=== PATIENT | female | born 1975 | race Caucasian/White ===

== ENCOUNTER 2017-07-16 14:56 | Emergency (ER) | payer BC ==
[~2017-07-16] VITALS: Ht 157.5 cm; Wt 54.9 kg
[2017-07-16 15:00] VITALS: TEMP 36.9; Ht 157.5 cm; Wt 54.9 kg
[2017-07-16] MEDS ORDERED: TRIMETHOPRIM/POLYMYXIN B OP ONE (15:30)
[2017-07-16] MEDS ORDERED: AMOXICILLIN/CLAVULANATE TAB 875 MG TAB PO ONE ×2 (15:30→16:30)
[2017-07-16] MEDS ORDERED: MULTIVITAMIN PACK PO (15:45)
--- NOTE | 2017-07-16 15:57 | DIAGNOSTIC IMAGING REPORT ---
ORBIT CT HISTORY: right orbit trauma, suspect orbital floor fx TECHNIQUE: Multiaxial CT images of the orbits were performed and reformatted in the coronal plane without the use of intravenous contrast. COMPARISON STUDY: None. FINDINGS: Trace hemorrhage within the right maxillary sinus. There is intraorbital subcutaneous gas. There is also preseptal and extraconal gas within the right orbit. The globes and retrobulbar fat appear intact. The optic nerves are normal in course and caliber. Mild right periorbital soft tissue swelling. The visualized brain parenchyma is unremarkable. There is a displaced right orbital floor fracture. The defect measures 1.5 cm. There is displacement of the extraconal fat and a small portion of the inferior rectus muscle into the defect. Therefore, this is concerning for entrapment. The orbital floor fractures depressed up to 1 cm. IMPRESSION: Comminuted and depressed right orbital floor fracture described above. There is also displacement of the extraconal fat and a small portion of the inferior rectus muscle into the orbital floor defect. Therefore, this is concerning for entrapment. Electronically signed by: Donovan Kirkland M.D. 07/16/2017 3:56 PM Dictated Date/Time: 07/16/2017 3:52 PM
[2017-07-16] MEDS ORDERED: AMOX875T PO (16:27)
[2017-07-16 16:28] VITALS: BP 138/88; PULSE 80; O2SAT 99
--- NOTE | 2017-07-16 17:59 | EMERGENCY ROOM VISIT NOTE ---
History Report prepared by Al: Marixa Leblanc Under the Supervision of: Dr. Mathew Bear M.D. First contact with patient: 15:05 Chief Complaint: EYE ASSESSMENT Stated Complaint: EYE PAIN History of Present Illness The patient is a 42 year old female who presents to the Emergency Room with complaints of sudden right eye pain beginning 2 days ago. The patient states that her dog went to jump into bed when the patient was leaning over, and the dog scratched her eye. The patient states that her eyeball hurts but that the area around her eye does not hurt. She also states that her eye popped up a little when she blew her nose. She reports having a headache yesterday, but denies neck and jaw pain. Dr. Lozoya spoke to Dr. Pulido who wanted the patient to get a CT scan done. Pt denies LOC, headache, visual changes, neck pain, chest pain, breathing difficulties, nausea, vomiting, open wounds, active bleeding, or other complaints. Source of History: patient Onset: 2 days ago Position: eye (right) Timing: other (sudden) Associated Symptoms: + headache, No neck pain Review of Systems See HPI for pertinent positives and negatives. A total of six systems were reviewed and were otherwise negative. Past Medical & Surgical Medical Problems: (1) Pancreatitis Family History Cancer Heart disease Social History Smoking Status: Current Every Day Smoker Alcohol Use: occasionally, other Drug Use: none Marital Status: in relationship Housing Status: lives with family, lives with significant other Occupation Status: employed Current/Historical Medications Scheduled Amoxicillin & Pot Clavulanate (Augmentin 875-125 mg), 875 MG PO BID [Multivitamin Pack], 1 PKT PO DAILY Allergies Coded Allergies: No Known Allergies (Unverified , 11/04/14) Physical Exam Vital Signs Date Time Temp Pulse Resp B/P (MAP) Pulse Ox O2 Delivery O2 Flow Rate FiO2 07/16/17 16:28 80 138/88 99 Room Air 07/16/17 15:00 36.9 90 18 140/84 99 Room Air Physical Exam GENERAL: Awake, alert, well-appearing, in no distress HENT: Normocephalic, atraumatic. Oropharynx unremarkable. EYES: Swelling and bruising below right eye. Scleral injection present medially. NECK: Supple. No nuchal rigidity. FROM. No JVD. RESPIRATORY: Clear to auscultation. MUSCULOSKELETAL: Chest examination reveals no tenderness. The back is symmetrical on inspection without obvious abnormality. There is no CVA tenderness to palpation. No joint edema. NEURO: Normal sensorium. No sensory or motor deficits noted. SKIN: No rash or jaundice noted. Medical Decision & Procedures ER Provider Diagnostic Interpretation: Radiology results as stated below per my review and radiologist interpretation: ORBIT CT HISTORY: right orbit trauma, suspect orbital floor fx TECHNIQUE: Multiaxial CT images of the orbits were performed and reformatted in the coronal plane without the use of intravenous contrast. COMPARISON STUDY: None. FINDINGS: Trace hemorrhage within the right maxillary sinus. There is intraorbital subcutaneous gas. There is also preseptal and extraconal gas within the right orbit. The globes and retrobulbar fat appear intact. The optic nerves are normal in course and caliber. Mild right periorbital soft tissue swelling. The visualized brain parenchyma is unremarkable. There is a displaced right orbital floor fracture. The defect measures 1.5 cm. There is displacement of the extraconal fat and a small portion of the inferior rectus muscle into the defect. Therefore, this is concerning for entrapment. The orbital floor fractures depressed up to 1 cm. IMPRESSION: Comminuted and depressed right orbital floor fracture described above. There is also displacement of the extraconal fat and a small portion of the inferior rectus muscle into the orbital floor defect. Therefore, this is concerning for entrapment. Electronically signed by: Donovan Kirkland M.D. 07/16/2017 3:56 PM Dictated Date/Time: 07/16/2017 3:52 PM Medications Administered Medications (Trade) Dose Ordered Sig/Traci Route Start Time Stop Time Status Last Admin Dose Admin Polymyxin/ Trimethoprim Sulfate (Polytrim Oph Soln) 1 drops NOW ONCE OP 07/16/17 15:30 07/16/17 15:31 DC 07/16/17 15:39 1 DROPS Amoxicillin/ Clavulanate Potassium (Augmentin Tab) 875 mg NOW ONCE PO 07/16/17 15:30 07/16/17 15:31 DC 07/16/17 15:38 875 MG Procedure Slit Lamp Examination Indication:eye pain Slit lamp examination was performed in the standard fashion. Cornea appeared clear. Anterior chamber normal. Scleral injection mildly present. No discharge present. Fluorescein examination performed and revealed no corneal abnormalities or foreign body. No foreign bodies noted. Negative Nathaniel sign. The patient tolerated the procedure well without complication. ED Course 1513: The patient was evaluated in room D5. A complete history and physical exam was performed. 1530: Ordered Augmentin Tab 875 mg PO, Polymyxin/Trimethoprim Sulfate 1 drops OP. 1617: Discussed the patient's case. The patient will be evaluated for further treatment and disposition. He recommended antibiotics and he will see the patient in the office tomorrow. 1630: Ordered Augmentin Tab 875 mg PO. 1635: I reevaluated the patient. Discussed results and discharge instructions: She verbalized understanding and agreement. The patient is ready for discharge. Medical Decision Prior records/ancillary studies reviewed. Triage Nursing notes reviewed and agree them. The patient's history was concerning for eye trauma. Differential diagnosis: Etiologies such as fracture, corneal abrasion, foreign body, globe penetration , hyphema, as well as others were entertained. Physical examination findings: As above.~ Slit-lamp examination revealed no significant abnormalities. ER treatment provided: Polytrim drops Oral Augmentin On reassessment the patient felt well Diagnostics interpretation by me: Imaging studies: CT scan as above The patient has a significant orbital floor fracture but no clinical evidence of entrapment. I gave my usual and customary discussion regarding this issue. Consultation: A consultation was placed with the automotive parts counter person construction equipment overhauler, Dr. Pulido. The case was discussed and diagnostics were reviewed. He will see the patient in follow- up. She will likely need ocular plastics referral By the evaluation outlined above emergent etiologies such as corneal abrasion, corneal ulcer, foreign body, globe penetration, hyphema, hypopyon, and orbital cellulitis, periorbital cellulitis, as well as others were deemed relatively unlikely. The [] informed about the findings as listed above. All questions were answered and [] pleased with the treatment. Return instructions were outlined and the patient was discharged in stable condition. Outpatient prescription management: [] Referral: The patient was referred to [] for follow-up for a recheck of the current condition. The chart was completed utilizing [employer] voice recognition software. Grammatical errors, random word insertions, pronoun errors, and incomplete sentences are an occasional consequence of this system due to software limitations, ambient noise, and hardware issues. Any formal questions or concerns about the content, text, or information contained within the body of this dictation should be directly addressed to the physician for clarification. Medication Reconcilliation Current Medication List: was personally reviewed by me Blood Pressure Screening Patient's blood pressure: Normal blood pressure Consults Time Called: 1613 Consulting Physician: Dr. Pulido-Ophthalmology Returned Call: [phone] Discussed the patient's case. The patient will be evaluated for further treatment and disposition. He recommended antibiotics and he will see the patient in the office tomorrow. Impression Primary Impression: Fracture of right orbital floor Additional Impressions: orbital emphysema Abrasion of sclera Scribe Attestation The scribe's documentation has been prepared under my direction and personally reviewed by me in its entirety. I confirm that the note above accurately reflects all work, treatment, procedures, and medical decision making performed by me. Departure Information Dispostion Home / Self-Care Prescriptions Amoxicillin & Pot Clavulanate (Augmentin 875-125 mg) 1 Tab Tab 875 MG PO BID for 7 Days, #14 TAB Prov: Mathew Bear MD 07/16/17 Referrals No Doctor, Assigned (PCP) Forms HOME CARE DOCUMENTATION FORM, IMPORTANT VISIT INFORMATION, WORK / SCHOOL INSTRUCTIONS Patient Instructions My [facility] Additional Instructions Polytrim Eyedrops: One drop to affected eye(s) every 3-4 hours while awake for 3 -5 days. If you are still having symptoms even may need to extend usage. Stop using if you develop severe pain or swelling. Return to the ER for evaluation. Amoxicillin Clavulanate (Augmentin) 875mg: Take one pill twice daily for 7 days for your eye. All antibiotics can cause diarrhea. If this occurs and you feel worse or it does not resolve in 1-2 days follow up with your doctor or return to the Emergency Department as this could be signs of serious underlying problems. Any medication can cause an allergic reaction, stop the pills immediately and return to the ER for rash, hives, breathing difficulties, or swelling. Acetaminophen(Tylenol) may be used for fever or pain. Use 1000mg every six hours as needed. Avoid using more than 4000mg in a 24 hour period. Ibuprofen(Motrin, Advil) may be used for fever or pain. Use 600mg every six hours as needed. Take with food. Avoid using more than 2400mg in a 24 hour period. Do not use 2400mg per day for more than three consecutive days without physician direction. Prolonged inappropriate use can lead to stomach upset or ulcers. Cool compresses for 20 minutes at a time four times daily for 2-3 days. Do not blow your nose. Return to the ER for facial swelling, worsening vision, severe eye pain, fevers or as needed. Follow-up with Dr. Pulido's office tomorrow as instructed. Problem Qualifiers
== END 2017-07-16 16:36 | disposition home or self-care (01) ==
LOC: C.EDB 14:57 → C.EDD 16:36
DX: S02.30XA Fracture of orbital floor, unspecified side, initial encounter for closed fracture (principal); H05.89 Other disorders of orbit; S05.01XA Injury of conjunctiva and corneal abrasion without foreign body, right eye, initial encounter; Z87.19 Personal history of other diseases of the digestive system; Z82.49 Family history of ischemic heart disease and other diseases of the circulatory system; W54.8XXA Other contact with dog, initial encounter; F17.200 Nicotine dependence, unspecified, uncomplicated